=== PATIENT | male | born 1945 | race Caucasian/White ===

== ENCOUNTER 2016-09-08 07:48 | Day surgery (SDC) | payer MEDICARE, OTHER ==
--- NOTE | ~2016-09-08 | OP ---
Record Of Operation [facility] [address] [place]. [address] NAME: RIMA GONZALEZ : 43 STATUS : REG [facility] PAT#: [id number] AGE: 71 ADM/REG DATE : 09/08/16 MR#: [id number] REPORT SERV DATE: 09/08/16 DICTATED BY: VIC PERLA JR. DATE: 09/08/16 REPORT STATUS : Draft TRANSCRIBED BY: LIVAN DATE: 09/08/16 DATE OF PROCEDURE: 09/08/2016 PREOPERATIVE DIAGNOSES: Non-small cell lung cancer right upper lobe, mediastinal lymphadenopathy, ischemic cardiomyopathy, status post previous coronary bypass surgery, chronic kidney disease stage 2 to 3, COPD, rule out metastatic lung cancer. POSTOPERATIVE DIAGNOSIS: No evidence of metastatic lung cancer. NAME OF OPERATION: Diagnostic and therapeutic bronchoscopy, endobronchial ultrasound with multiple fine-needle aspirations, ajay stations 4R, 7, 10R. SURGEON: Vic Perla Jr., M.D. ANESTHESIA: General endotracheal. FINDINGS: Patient noted to have a tortuous calcified trachea. We were able to see a lot of benign appearing small lymph nodes in the right paratracheal, right hilar, and subcarinal regions. These correlated to areas that were seen as having increased uptake on PET-CT scan. Morphologically the lymph nodes were normal. On touch preps, there was no evidence of metastatic cancer. Additional material was sent for cell block. Final pathology is pending. On bronchoscopy, as I said, the trachea looked tortuous and calcified. It was difficult to get the needle through the outside of the tracheal rings. There was a moderate amount of mucous secretions. There were no endobronchial lesions. DETAILS OF OPERATION: After adequate general anesthesia, the patient was intubated with an LMA. Diagnostic and therapeutic bronchoscopy was performed noting the above findings. Endobronchial ultrasound was also performed noting the benign-appearing morphologically normal lymph nodes. Multiple needle aspirations were performed from 3 different sites including the right paratracheal, right mainstem bronchial, and subcarinal regions. All three regions had benign lymphocytes. There was no evidence of metastatic cancer. Additional material was sent for cell block. Final pathology is pending. Adequate hemostasis was obtained. The procedure was terminated at this point. The patient tolerated the procedure well and taken back to the recovery room in stable condition. ONEL Vic Perla Jr., M.D. / [phone] CC: Vic Perla Jr., M.D. Record Of Operation [address] [place]. [address] NAME: RIMA GONZALEZ : 43 STATUS : REG [facility] PAT#: [id number] AGE: 71 ADM/REG DATE : 09/08/16 MR#: [id number] REPORT SERV DATE: 09/08/16 DICTATED BY: VIC PERLA JR. DATE: 09/08/16 REPORT STATUS : Draft TRANSCRIBED BY: MODL DATE: 09/08/16 Lucero Gray M.D. Derek W Holland, M.D.
[~2016-09-08 07:48] MED LIST: 8 HOUR650 MG PO; ASAB PO; ASPIRIN PO; COREG25; COREG3 PO; L20 PO; PRILO PO; PRIN5; PROVHFA INH; SPIRIVA RESPIMAT; SPIRO25 PO; SYMBICORT 160/41 INH INH; T PO; VICODINTAB PO; ZOCOR20 PO
[2016-09-08 08:07] LABS: HEMATOCRIT 42.1 % (40.0-51.0); HEMOGLOBIN 13.8 g/dL (13.6-17.8)
[2016-09-08 08:21] LABS: CALCIUM, SERUM 9.2 MG/DL (8.5-10.4); CHLORIDE, SERUM 103 MMOL/L (96-112); CO2 (CARBON DIOXIDE) 30 MMOL/L (24-34); CREATININE 1.53 MG/DL (0.70-1.30); GFR AFRICAN AMERICAN 52 ML/MIN (>=60); GFR NON AFRICAN AMERICAN 45 ML/MIN (>=60); GLUCOSE, SERUM 102 MG/DL (60-99); SODIUM, SERUM 138 MMOL/L (135-148)
[2016-09-08 08:22] LABS: BUN (BLOOD UREA NITROGEN) 39 MG/DL (6-23)
== END 2016-09-08 23:59 | disposition home health service (06) ==
LOC: DMU 07:48
PROVIDERS: Anesthesiology; Thoracic Surgery (Cardiothoracic Vascular Surgery)
PROC: 07B74ZX Excision of Thorax Lymphatic, Percutaneous Endoscopic Approach, Diagnostic (ICD-10-PCS; principal; 2016-09-08 09:00)
DX: C34.11 Malignant neoplasm of upper lobe, right bronchus or lung (principal); J44.9 Chronic obstructive pulmonary disease, unspecified; I25.5 Ischemic cardiomyopathy; I25.10 Atherosclerotic heart disease of native coronary artery without angina pectoris; I50.9 Heart failure, unspecified; I13.0 Hypertensive heart and chronic kidney disease with heart failure and stage 1 through stage 4 chronic kidney disease, or unspecified chronic kidney disease; E78.2 Mixed hyperlipidemia; R59.1 Generalized enlarged lymph nodes; K21.9 Gastro-esophageal reflux disease without esophagitis; E55.9 Vitamin D deficiency, unspecified; M19.90 Unspecified osteoarthritis, unspecified site; N18.3 Chronic kidney disease, stage 3 (moderate); Z95.1 Presence of aortocoronary bypass graft; Z79.899 Other long term (current) drug therapy; Z79.82 Long term (current) use of aspirin; Z87.891 Personal history of nicotine dependence; Z98.890 Other specified postprocedural states
CPT/HCPCS: 80048; 85014; 85018; 88172; 88173; 88177; 88305; 93005; A9270-GY; C1725; J2370; J2405; J3010